=== PATIENT | male | born 1970 | race Caucasian/White ===

== ENCOUNTER 2017-02-20 14:38 | Emergency (ER) | payer MEDICAID, MEDICARE ==
--- NOTE | 2017-02-20 15:29 | RAD ---
INDICATION: Lateral ankle pain 2 weeks after a twisting injury COMPARISON: None. TECHNIQUE: 3 views of the left ankle were obtained. FINDINGS: The well corticated bones exhibit normal alignment. Joint spaces appear maintained. No fracture is seen. IMPRESSION: Normal ankle radiograph. If the patient's symptoms persist, follow-up imaging is recommended.
--- NOTE | 2017-02-20 15:35 | UC ---
Lower Extremity/Ankle HPI - HPI Summary HPI Summary: twisted ankle 2 weeks ago---has continued pain with ambulation - History of Current Complaint Chief Complaint: UCLowerExtremity Stated Complaint: ANKLE INJURY Time Seen by Provider: 02/20/17 15:34 Hx Obtained From: Patient Onset/Duration: Sudden Onset, Lasting Weeks - 2, Still Present Severity Initially: Moderate Severity Currently: Mild Pain Intensity: 3 Pain Scale Used: 0-10 Numeric Aggravating Factor(s): Standing, Ambulation Alleviating Factor(s): Rest, Elevation Able to Bear Weight: Yes - Allergies/Home Medications Allergies/Adverse Reactions: Allergies Allergy/AdvReac Type Severity Reaction Status Date / Time Haloperidol [From Haldol] Allergy See Comment Verified 02/20/17 14:50 Home Medications: Home Medications OLANzapine TAB* [Zyprexa 10 MG TAB*] 02/20/17 [History] Venlafaxine EXT RELEASE CAP* [Effexor Xr CAP*] 02/20/17 [History] clonazePAM TAB(*) [Klonopin TAB(*)] 02/20/17 [History] PMH/Surg Hx/FS Hx/Imm Hx Previously Healthy: No Psychological History: Depression, Schizophrenia - Surgical History Surgical History: None - Family History Known Family History: Positive: None Family History: no reported cardiovascular issues in family lineage - Social History Occupation: Employed Full-time - runs a [employer] Lives: With Family Alcohol Use: unknown Substance Use Type: Cocaine, Marijuana Smoking Status (MU): Heavy Every Day Tobacco Smoker Amount Used/How Often: 1/2 PPD Household Exposure Type: Cigarettes Cessation Counseling: Counseled 3+Min - 10 Min Review of Systems Constitutional: Negative Skin: Negative Eyes: Negative ENT: Negative Respiratory: Negative Cardiovascular: Negative Gastrointestinal: Negative Genitourinary: Negative Motor: Negative Neurovascular: Negative Musculoskeletal: Arthralgia - right ankle Neurological: Negative Psychological: Negative All Other Systems Reviewed And Are Negative: Yes Physical Exam Triage Information Reviewed: Yes Appearance: Well-Appearing, No Pain Distress, Well-Nourished Vital Signs: Initial Vital Signs Temp 98.8 F 02/20/17 14:52 Pulse 100 02/20/17 14:52 Resp 16 02/20/17 14:52 Pulse Ox 98 02/20/17 14:52 Vital Signs Reviewed: Yes Eye Exam: Normal Eyes: Positive: Conjunctiva Clear ENT Exam: Normal ENT: Positive: Normal ENT inspection, Hearing grossly normal, TMs normal. Negative: Nasal congestion, Nasal drainage, Trismus, Muffled/hoarse voice Dental Exam: Normal Neck exam: Normal Neck: Positive: Supple, Nontender, No Lymphadenopathy Respiratory Exam: Normal Respiratory: Positive: Chest non-tender, Lungs clear, Normal breath sounds, No respiratory distress, No accessory muscle use Cardiovascular Exam: Normal Cardiovascular: Positive: RRR, No Murmur, Pulses Normal, Brisk Capillary Refill Musculoskeletal Exam: Normal Musculoskeletal: Positive: Strength Intact, ROM Intact, No Edema Neurological Exam: Normal Neurological: Positive: Alert, Muscle Tone Normal Psychological Exam: Normal Skin Exam: Normal Re-Evaluation - Re-Evaluation First Eval Change: Improved - reports good pain relief and sturdiness of ankle with cam boot Lower Extremity Course/Dx - Course Course Of Treatment: cam boot, nsaids, follow with ortho , smoking cesassion information - Differential Dx/Diagnosis Differential Diagnosis/HQI/PQRI: Contusion, Fracture (Closed), Sprain, Strain Provider Diagnoses: Left ankle sprain Discharge - Discharge Plan Condition: Stable Disposition: HOME Patient Education Materials: Ibuprofen (By mouth), RICE Therapy (ED), Swollen Ankle Joint (ED), Ankle Strain (ED) Referrals: Praveen Farooq MD [Medical Doctor] - 3 Days No Primary Care Phys,NOPCP [Primary Care Provider] -
== END 2017-02-20 15:50 | disposition home or self-care (01) ==
LOC: UCEAST 14:38
DX: S93.402A Sprain of unspecified ligament of left ankle, initial encounter (principal); X50.1XXA Overexertion from prolonged static or awkward postures, initial encounter; Y93.9 Activity, unspecified; Y92.9 Unspecified place or not applicable; F32.9 Major depressive disorder, single episode, unspecified; F20.9 Schizophrenia, unspecified; F14.90 Cocaine use, unspecified, uncomplicated; F12.90 Cannabis use, unspecified, uncomplicated; F17.210 Nicotine dependence, cigarettes, uncomplicated; Z71.6 Tobacco abuse counseling
CPT/HCPCS: 99212; G0463

== ENCOUNTER 2017-07-28 11:10 | Emergency (ER) | payer MEDICAID, MEDICARE ==
[2017-07-28 11:54] LABS: Hematocrit 44 % (42-52); Hemoglobin 15.6 g/dl (14.0-18.0); Mean Corpuscular HGB Conc 35 g/dl (31-36); Mean Corpuscular Hemoglobin 30 pg (27-31); Mean Corpuscular Volume 84 fL (80-94); Mean Platelet Volume 9 um3 (7.4-10.4); Red Blood Count 5.22 10^6/ul (4.0-5.4); Red Cell Distribution Width 13 % (10.5-15); White Blood Count 6.8 10^3/ul (3.5-10.8)
[2017-07-28 12:07] LABS: ALT 20 U/L (7-52); AST 17 U/L (13-39); Albumin 4.7 g/dL (3.2-5.2); Alkaline Phosphatase 78 U/L (34-104); Anion Gap 6 mmol/L (2-11); BUN/Creatinine Ratio 10.2 (8-20); Blood Urea Nitrogen 9 mg/dL (6-24); CO2 Carbon Dioxide 29 mmol/L (22-32); Calcium 9.9 mg/dL (8.6-10.3); Chloride 100 mmol/L (101-111); EGFR African American 119.9 (>60); EGFR Non-African American 93.2 (>60); Globulin 2.8 g/dL (2-4); Glucose 82 mg/dL (70-100); Sodium 135 mmol/L (133-145); Total Protein 7.5 g/dL (6.4-8.9)
[2017-07-28 12:40] LABS: Acetaminophen < 15 mcg/mL; Alcohol < 10 mg/dL (<10)
[2017-07-28 12:55] LABS: TSH (Thyroid Stimulating Horm) 1.66 mcIU/mL (0.34-5.60)
[2017-07-28 13:04] LABS: Benzodiazepine Urine Screen None Detected (None Detect)
[2017-07-28 16:51] VITALS: BP 125/80
--- NOTE | 2017-07-29 07:45 | ED ---
Carroll Macedo Angela, scribed for Nabil Cintron MD on 07/28/17 at 1154 . Psychiatric Complaint - HPI Summary HPI Summary: This pt is a 47 y/o male presenting to [facility] c/o nervous breakdowns for 1 month. Pt reports that he is presenting to the ED for crying spells. He also notes difficulty sleeping at night. Pt states he is eating well. He endorses SI thoughts but denies SI plan. Pt is in the ED to speak with [facility]. - History Of Current Complaint Chief Complaint: EDMentalHealth Time Seen by Provider: 07/28/17 11:23 Hx Obtained From: Patient Onset/Duration: Lasting Weeks, Still Present Timing: Weeks Character: Depressed Associated Signs And Symptoms: Positive: Sleep Disturbance. Negative: Appetite Change Has Suicidal: Reports: Thoughts. Denies: With A Plan - Allergies/Home Medications Allergies/Adverse Reactions: Allergies Allergy/AdvReac Type Severity Reaction Status Date / Time Haloperidol [From Haldol] Allergy See Comment Verified 02/20/17 14:50 Home Medications: Home Medications OLANzapine TAB* [Zyprexa 10 MG TAB*] 10 mg PO BEDTIME 07/28/17 [History Confirmed 07/28/17] Venlafaxine EXT RELEASE CAP* [Effexor Xr CAP*] 225 mg PO BEDTIME 07/28/17 [ History Confirmed 07/28/17] clonazePAM TAB(*) [KlonoPIN TAB(*)] 2 mg PO BEDTIME PRN 07/28/17 [History Confirmed 07/28/17] PMH/Surg Hx/FS Hx/Imm Hx Cardiovascular History: Reports: Hx Hypertension Psychiatric History: Reports: Hx Depression, Hx of Violent Episodes Against Others Denies: Hx Eating Disorder Infectious Disease History: No Infectious Disease History: Denies: Traveled Outside the [place] in Last 30 Days - Family History Family History: no reported cardiovascular issues in family lineage - Social History Alcohol Use: Occasionally Substance Use Type: Reports: Cocaine, Marijuana Smoking Status (MU): Heavy Every Day Tobacco Smoker Amount Used/How Often: 1/2 PPD Review of Systems Constitutional: Other - sleep disturbance Negative: Fever, Chills Eyes: Negative ENT: Negative Cardiovascular: Negative Respiratory: Negative Gastrointestinal: Negative Psychological: Other - SI thoughts, nervous breakdowns Positive: Depressed. Negative: Other - SI plan All Other Systems Reviewed And Are Negative: Yes Physical Exam - Summary Physical Exam Summary: VITAL SIGNS: Reviewed. GENERAL: Patient is a well-developed and nourished male who is lying comfortable in the stretcher. Patient is not in any acute respiratory distress. HEAD AND FACE: No signs of trauma. No ecchymosis, hematomas or skull depressions. No sinus tenderness. EYES: PERRLA, EOMI x 2, No injected conjunctiva, no nystagmus. EARS: Hearing grossly intact. Ear canals and tympanic membranes are within normal limits. MOUTH: Oropharynx within normal limits. NECK: Supple, trachea is midline, no adenopathy, no JVD, no carotid bruit, no c- spine tenderness, neck with full ROM. CHEST: Symmetric, no tenderness at palpation LUNGS: Clear to auscultation bilaterally. No wheezing or crackles. CVS: Regular rate and rhythm, S1 and S2 present, no murmurs or gallops appreciated. ABDOMEN: Soft, non-tender. No signs of distention. No rebound no guarding, and no masses palpated. Bowel sounds are normal. EXTREMITIES: FROM in all major joints, no edema, no cyanosis or clubbing. NEURO: Alert and oriented x 3. No acute neurological deficits. Speech is normal and follows commands. SKIN: Dry and warm PSYCH: Quiet, and admits suicidal thoughts but denies plan. No tangential speech. Triage Information Reviewed: Yes Vital Signs On Initial Exam: Initial Vitals Temp Pulse Resp BP Pulse Ox 97.0 F 106 16 151/90 98 07/28/17 11:14 07/28/17 11:14 07/28/17 11:14 07/28/17 11:14 07/28/17 11:14 Vital Signs Reviewed: Yes Diagnostics - Vital Signs Vital Signs Temp Pulse Resp BP Pulse Ox 07/28/17 11:14 97.0 F 106 16 151/90 98 - Laboratory Result Diagrams: 07/28/17 11:40 07/28/17 11:40 Lab Statement: Any lab studies that have been ordered have been reviewed, and results considered in the medical decision making process. Course/Dx - Course Assessment/Plan: This pt is a 47 y/o male presenting to [facility] c/o nervous breakdowns for 1 month. Pt reports that he is presenting to the ED for crying spells. He also notes difficulty sleeping at night. Pt states he is eating well. He endorses SI thoughts but denies SI plan. Pt is in the ED to speak with [facility]. All blood work within normal limits. Pt is medically cleared at 11:50. He is waiting for [facility]. Pt was evaluated by Dr. Christian, psychiatrist. He recommends discharge for the pt. Pt will be discharged home with a diagnosis of bipolar disorder. - Differential Dx/Clinical Impression Provider Diagnosis: Bipolar disorder Discharge - Discharge Plan Condition: Stable Disposition: HOME Patient Education Materials: Bipolar Disorder (ED) Referrals: No Primary Care Phys,NOPCP [Primary Care Provider] - Additional Instructions: Per completion of a mental health evaluation, you are cleared for release and do not require inpatient psychiatric hospitalization at this time. Please go to nearest emergency room or call 911 if safety concerns arise or condition worsens. Important Phone Numbers: [facility]~~ ph:[phone] Suicide Prevention and Crisis Services~~~~~~~~~~~~~~~~~~~~~~~ ph:[phone] National Suicide Prevention Lifeline~~~~~~~~~~~~~~~~~~~~~~~ ~~ ph:[phone] WOAY (0174) [facility]~~~~~~~~~~~~~~~~~~ ~~ ph:[phone] Alcoholics Anonymous~~~~~~~~~~~~~~~~~~~~~~~~~~~~~~~~~~~~~~~~~~~~~~~~~ ph:[phone] [facility]~~~~~~ ~~ ph:[phone] [place] [employer] ph:[phone] Follow up with current provider at [facility] (Appointment schedule per PT report). The documentation as recorded by the Carroll cole Angela accurately reflects the service I personally performed and the decisions made by , Nabil Cintron MD.
== END 2017-07-28 17:54 | disposition home or self-care (01) ==
LOC: ED 11:10
DX: F32.9 Major depressive disorder, single episode, unspecified (principal); F17.210 Nicotine dependence, cigarettes, uncomplicated; F31.9 Bipolar disorder, unspecified
CPT/HCPCS: 36415; 80053; 80307; 80320; 80329; 84443; 85025; 99283; G0480

== ENCOUNTER 2018-02-10 03:32 | Emergency (ER) | payer MEDICARE ==
[2018-02-10 03:40] VITALS: BP 117/84
[2018-02-10] MEDS ORDERED: Ketorolac INJ* 60 MG/2 ML VIAL IM ONE (04:05)
[2018-02-10] MEDS ORDERED: Cyclobenzaprine TAB* 10 MG PO ONE (04:06)
--- NOTE | 2018-02-10 04:50 | ED ---
Bri Macedo Rebecca, scribed for Dandy Mckay MD on 02/10/18 at 0351 . Back Pain - HPI Summary HPI Summary: Pt is a 47 y/o M who presents to ED c/o acute on chronic lumbar back pain. Sx have been present for 2 years and he states that the pain tonight is worse than it usually is. Describes the pain as being located "in the tailbone"and on triage, it was severe, ranked 8/10. Sx aggravated and alleviated by nothing. Additionally c/o R toe pain stating that "when I curl by toes, it hurts when I let them loose." Able to ambulate. - History of Current Complaint Chief Complaint: EDBackInjuryPain Stated Complaint: BACK PAIN Time Seen by Provider: 02/10/18 03:47 Hx Obtained From: Patient Onset/Duration: Still Present, Worse Since - Today Back Pain Location: Is Discrete @ - Lumbar back Severity Currently: Severe Pain Intensity: 8 Pain Scale Used: 0-10 Numeric Aggravating Symptom(s): Nothing Alleviating Symptom(s): Nothing Associated Signs And Symptoms: Positive: Other - R toe pain - Allergies/Home Medications Allergies/Adverse Reactions: Allergies Allergy/AdvReac Type Severity Reaction Status Date / Time haloperidol [From Haldol] Allergy jaw Verified 02/10/18 03:55 tightening PMH/Surg Hx/FS Hx/Imm Hx Cardiovascular History: Reports: Hx Hypertension Psychiatric History: Reports: Hx Depression, Hx of Violent Episodes Against Others Denies: Hx Eating Disorder Infectious Disease History: No Infectious Disease History: Denies: Traveled Outside the [place] in Last 30 Days - Family History Known Family History: Positive: Other - Gout Negative: Cardiac Disease Family History: no reported cardiovascular issues in family lineage - Social History Alcohol Use: Occasionally Substance Use Type: Reports: Cocaine, Marijuana Smoking Status (MU): Heavy Every Day Tobacco Smoker Amount Used/How Often: 1/2 PPD Review of Systems Negative: Fever Negative: incontinence Positive: Other - Lumbar back pain, R toe pain All Other Systems Reviewed And Are Negative: Yes Physical Exam - Summary Physical Exam Summary: VITAL SIGNS: Reviewed. GENERAL: ~Patient is a well-developed and nourished male who is lying comfortable in the stretcher. Patient is not in any acute respiratory distress. HEAD AND FACE: No signs of trauma. No ecchymosis, hematomas or skull depressions. No sinus tenderness. EYES: PERRLA, EOMI x 2, No injected conjunctiva, no nystagmus. EARS: Hearing grossly intact. Ear canals and tympanic membranes are within normal limits. MOUTH: Oropharynx within normal limits. NECK: Supple, trachea is midline, no adenopathy, no JVD, no carotid bruit, no c- spine tenderness, neck with full ROM. CHEST: Symmetric, no tenderness at palpation LUNGS: Clear to auscultation bilaterally. No wheezing or crackles. CVS: Regular rate and rhythm, S1 and S2 present, no murmurs or gallops appreciated. ABDOMEN: Soft, non-tender. No signs of distention. No rebound no guarding, and no masses palpated. Bowel sounds are normal. EXTREMITIES: Mild lumbosacral tenderness, negative straight leg raise test on both sides, FROM in all major joints, no edema, no cyanosis or clubbing. NEURO: Alert and oriented x 3. No acute neurological deficits. Speech is normal and follows commands. SKIN: Dry and warm Triage Information Reviewed: Yes Vital Signs On Initial Exam: Initial Vitals Temp Pulse Resp BP Pulse Ox 98.6 F 88 18 117/84 96 02/10/18 03:34 02/10/18 03:34 02/10/18 03:34 02/10/18 03:34 02/10/18 03:34 Vital Signs Reviewed: Yes Diagnostics - Vital Signs Vital Signs Temp Pulse Resp BP Pulse Ox 02/10/18 03:34 98.6 F 88 18 117/84 96 - Laboratory Lab Statement: Any lab studies that have been ordered have been reviewed, and results considered in the medical decision making process. Re-Evaluation - Re-Evaluation First Eval Re-Evaluation Time: 04:46 Change: Improved Back Pain Course/Dx - Course Assessment/Plan: Pt is a 47 y/o M who presents to ED c/o severe acute on chronic lumbar back pain for 2, worse than it usually is, located "in the tailbone." Additionally c/o R toe pain stating that "when I curl by toes, it hurts when I let them loose." Able to ambulate. In the ED course, pt recevied Flexeril and Toradol which improved sx. He will be D/C to home with Dx of back pain and a follow up with his PCP. He understands and agrees. Allergy noted. - Diagnoses Provider Diagnoses: Back pain Discharge - Sign-Out/Discharge Documenting (check all that apply): Discharge/Admit/Transfer - Discharge - Discharge Plan Condition: Stable Disposition: HOME Patient Education Materials: Back Pain (ED) Referrals: No Primary Care Phys,NOPCP [Primary Care Provider] - [facility] [Outside] - 3 Days Additional Instructions: RETURN TO ED FOR ANY NEW OR WORSENING SYMPTOMS. The documentation as recorded by the Bri cole Rebecca accurately reflects the service I personally performed and the decisions made by , Dandy Mckay MD.
== END 2018-02-10 05:14 | disposition home or self-care (01) ==
LOC: ED 03:32
DX: M54.5 Low back pain (principal); G89.29 Other chronic pain; M79.674 Pain in right toe(s); F17.200 Nicotine dependence, unspecified, uncomplicated; Z88.8 Allergy status to other drugs, medicaments and biological substances
CPT/HCPCS: 96372; 99282; A9270-GY; J1885